=== PATIENT | female | born 1980 | race Two or more races ===

== ENCOUNTER 2017-03-17 10:40 | Emergency (ER) | payer MEDICAID, OTHER ==
[~2017-03-17] VITALS: Ht 152.4 cm; Wt 56.7 kg
[2017-03-17 12:56] VITALS: BP 116/66
== END 2017-03-17 13:11 | disposition home or self-care (01) ==
LOC: ER 10:40
DX: H10.31 Unspecified acute conjunctivitis, right eye (principal)